=== PATIENT | female | born 1945 | race Caucasian/White ===

== ENCOUNTER 2023-02-23 10:03 | Emergency (ER) | payer SELFPAY ==
[~2023-02-23] VITALS: Ht 149.9 cm; Wt 68.0 kg
[2023-02-23 10:23] VITALS: BP 143/45; PULSE 106; RESP 16; TEMP 98.7; O2SAT 97
== END 2023-02-23 16:58 | disposition left against medical advice (07) ==
LOC: ER 10:03
DX: R50.9 Fever, unspecified (principal); Z53.21 Procedure and treatment not carried out due to patient leaving prior to being seen by health care provider
CPT/HCPCS: 99281